=== PATIENT | male | born 1945 | race Caucasian/White ===

== ENCOUNTER → 2017-08-28 09:01 | Outpatient (CLI) | payer MEDICARE, OTHER, SELFPAY ==
[2017-08-29 09:20] LABS: Microalbumin:Creatinine Ratio 328.7 mg/g CRE (<30 mg/g CRE)
[2017-08-29 09:21] LABS: ALB/GLOB Ratio 0.9 RATIO (0.9-2.4); AST(SGOT) 28 U/L (15-37); Alanine Aminotransfer ALT/SGPT 25 U/L (16-61); Albumin, Serum 3.6 g/dL (3.2-5.0); Alkaline Phosphatase 68 U/L (45-117); Anion Gap 7 (5-15); BUN 51 mg/dL (7-18); Calcium,Total 10.2 mg/dL (8.5-10.1); Chloride 105 mmol/L (98-107); Creatinine, Serum 2.43 mg/dL (0.70-1.30); EST Glomerular Filtration Rate 28 mL/min (>60); Est Glom Filt Rate - Afr Amer 34 mL/min (>60); Globulin 3.9 g/dL (2.2-4.2); Glucose 114 mg/dL (74-106); Protein, Total 7.5 g/dL (6.4-8.2); Sodium Level 138 mmol/L (136-145); Thyroid Stim Hormone (TSH) 0.98 uIU/mL (0.358-3.74)
[2017-08-29 09:39] LABS: Hemoglobin A1c 4.8 % (4.2-6.3)
[2017-08-29 09:49] LABS: Vitamin B12 281 pg/mL (211-911); Vitamin D,25 Hydroxy 36.9 ng/mL (29.95-100.01)
== END ==
PROVIDERS: Family Provider Family Medicine; PCP Family Medicine; Visit Provider Family Medicine
DX: E11.22 Type 2 diabetes mellitus with diabetic chronic kidney disease (principal); N18.9 Chronic kidney disease, unspecified; E11.40 Type 2 diabetes mellitus with diabetic neuropathy, unspecified
CPT/HCPCS: 36415; 80053; 82043; 82306; 82570; 82607; 82746; 83036; 84443

== ENCOUNTER 2017-10-01 13:05 | Outpatient (RCR) | payer MEDICARE, OTHER, SELFPAY ==
[2017-10-01 14:45] LABS: International Normalized Ratio 2.1; Prothrombin Time (Protime)PT. 23.7 SECONDS (11.7-14.9)
== END 2017-10-01 14:00 | disposition home or self-care (01) ==
LOC: LAB 13:05
PROVIDERS: Family Provider Family Medicine; PCP Family Medicine; Visit Provider Internal Medicine Cardiovascular Disease
DX: I21.3 ST elevation (STEMI) myocardial infarction of unspecified site (principal); I48.1 Persistent atrial fibrillation; Z79.01 Long term (current) use of anticoagulants
CPT/HCPCS: 36415; 85610

== ENCOUNTER → 2017-10-23 09:27 | Outpatient (CLI) | payer MEDICARE, OTHER, SELFPAY ==
[2017-10-23 12:04] LABS: International Normalized Ratio 2.1; Prothrombin Time (Protime)PT. 23.2 SECONDS (11.7-14.9)
== END ==
PROVIDERS: Family Provider Family Medicine; PCP Family Medicine; Visit Provider Internal Medicine Cardiovascular Disease
DX: I48.1 Persistent atrial fibrillation (principal); Z79.01 Long term (current) use of anticoagulants
CPT/HCPCS: 36415; 85610

== ENCOUNTER → 2017-10-29 11:14 | Outpatient (CLI) | payer MEDICARE, OTHER, SELFPAY ==
--- NOTE | 2017-10-29 11:21 | NM_ITS ---
CLINICAL: 72-year-old diabetic male with history of apparent hiatal hernia. SEMI-SOLID PHASE 99m Tc SULFUR COLLOID GASTRIC EMPTYING STUDY COMPARISON: None available FINDINGS: The patient was administered 1.1 mCi of 99m Tc sulfur colloid mixed with oatmeal and consumed per os. Image acquisitions in the anterior-posterior projections for a total of 60 minutes. There is prompt visualization of the stomach. There is no gastroesophageal reflux identified. The T1/2 linear fit was calculated to be 24.04 minutes, (Normal: 12-56 minutes). NM/Gastric Emptying Study IMPRESSION: 1. NORMAL 99m Tc sulfur colloid semi-solid phase (oatmeal) gastric emptying imaging examination. A. There is normal and preserved semi-solid phase gastric emptying compared to normal controls with maintained zero order kinetics throughout all components of the examination. (Kelley et al, J Nucl Med Tech 38: 186, 2010). Electronically Signed: Aly Trinidad DO at 23:15 EDT Tel , Service support ,
== END ==
PROVIDERS: Family Provider Family Medicine; PCP Family Medicine; Visit Provider Family Medicine
DX: R68.81 Early satiety (principal)
CPT/HCPCS: 78264; A9541

== ENCOUNTER → 2017-11-13 09:59 | Outpatient (CLI) | payer MEDICARE, OTHER, SELFPAY ==
[2017-11-13 12:24] LABS: Anion Gap 8 (5-15); BUN 18 mg/dL (7-18); BUN/Creat Ratio 12.3 RATIO (10-20); Calcium,Total 10.3 mg/dL (8.5-10.1); Chloride 95 mmol/L (98-107); Creatinine, Serum 1.46 mg/dL (0.70-1.30); EST Glomerular Filtration Rate 50 mL/min (>60); Est Glom Filt Rate - Afr Amer 61 mL/min (>60); Glucose 152 mg/dL (74-106); Potassium 4.4 mmol/L (3.5-5.1); Sodium Level 133 mmol/L (136-145)
== END ==
PROVIDERS: Family Provider Family Medicine; PCP Family Medicine; Visit Provider Family Medicine
DX: I10 Essential (primary) hypertension (principal)
CPT/HCPCS: 36415; 80048

== ENCOUNTER → 2017-11-14 11:39 | Outpatient (CLI) | payer MEDICARE, OTHER, SELFPAY ==
[2017-11-14 14:29] LABS: Absolute Lymphocyte Count 0.95 X10^3/ul (0.83-4.51); Absolute Neutrophil Count 8.6 X10^3/uL (2.0-7.7); Basophil# 0.11 X10^3/uL; Basophil% 0.9 % (0-1); Eosinophil# 1.38 X10^3/uL; Eosinophils% 11.6 % (0-5); Hematocrit 31.5 % (40-54); Hemoglobin 10.2 g/dl (13.0-16.5); Lymphocyte # 0.95 X10^3/ul (4.0); Mean Corp Hgb Conc 32.4 g/gl (32-36); Mean Corpuscular Volume 86.5 fL (80-94); Mean Platelet Vol. 10.1 fl (6.2-12.0); Monocyte# 0.82 X10^3/uL; Monocyte% 6.9 % (0-10); Neutrophil # 8.58 X10^3/uL (2.7-7.7); Neutrophil % 72.4 % (47-70); Platelet Count 392 K/mm3 (150-450); RBC Distribution Width CV 12.9 % (11.6-14.6); RBC Distribution Width SD 39.6 fl (35.1-43.9); Red Blood Count 3.64 M/mm3 (4.6-6.2); White Blood Count 11.9 K/mm3 (4.4-11.0)
[2017-11-14 14:30] LABS: POSITIVE COUNT NO; POSITIVE DIFFERENTIAL NO; POSITIVE MORPHOLOGY NO
[2017-11-14 14:33] LABS: Vitamin D,25 Hydroxy 38.9 ng/mL (29.95-100.01)
[2017-11-14 14:36] LABS: ALB/GLOB Ratio 0.8 RATIO (0.9-2.4); AST(SGOT) 26 U/L (15-37); Alanine Aminotransfer ALT/SGPT 27 U/L (16-61); Albumin, Serum 3.5 g/dL (3.2-5.0); Alkaline Phosphatase 141 U/L (45-117); Anion Gap 9 (5-15); BUN 24 mg/dL (7-18); BUN/Creat Ratio 14.5 RATIO (10-20); Calcium,Total 10.5 mg/dL (8.5-10.1); Chloride 91 mmol/L (98-107); Creatinine, Serum 1.65 mg/dL (0.70-1.30); EST Glomerular Filtration Rate 44 mL/min (>60); Est Glom Filt Rate - Afr Amer 53 mL/min (>60); Globulin 4.3 g/dL (2.2-4.2); Glucose 157 mg/dL (74-106); Lipase 131 U/L (73-393); Potassium 4.5 mmol/L (3.5-5.1); Protein, Total 7.8 g/dL (6.4-8.2); Sodium Level 130 mmol/L (136-145); Thyroid Stim Hormone (TSH) 0.93 uIU/mL (0.358-3.74)
[2017-11-14 14:53] LABS: PTHIN 94.7 pg/mL (18.4-80.1)
== END ==
PROVIDERS: Family Provider Family Medicine; PCP Family Medicine; Visit Provider Family Medicine
DX: E83.52 Hypercalcemia (principal); R10.84 Generalized abdominal pain
CPT/HCPCS: 36415; 80053; 82306; 83690; 83970; 84443; 85025; 86140

== ENCOUNTER → 2017-11-16 09:22 | Outpatient (CLI) | payer MEDICARE, OTHER, SELFPAY ==
--- NOTE | 2017-11-16 09:26 | US_ITS ---
STUDY: ABDOMINAL ULTRASOUND REASON FOR EXAM: Male, 72 years old. Postprandial abdominal pain TECHNIQUE: Transabdominal ultrasound was performed with real-time and static tovar scale imaging. TECHNICAL QUALITY: Adequate. COMPARISON: None. FINDINGS: Liver: The liver measures 15.7 cm. There are at least 5 hypoechoic hepatic nodules measuring up to 2.0 x 2.9 x 1.7 cm. The bile ducts are within normal limits. There is hepatic color flow. The direction of portal flow is hepatopetal. Gallbladder: The patient is status post cholecystectomy. Common Bile Duct (C.B.D.): The common bile duct measures 6 mm. Pancreas: The pancreatic body and head appear normal. The tail was obscured by bowel gas. Spleen: The spleen measures 12.6 x 5.7 x 6.1 cm. cm. Right Kidney: The right kidney is lobular in contour. The right kidney measures 12.6 x 5.7 x 6.1 cm. Normal renal cortex. The right cortex measures 1.4 cm. There is no demonstrated renal mass or cyst. There is no right hydronephrosis. Left Kidney: The left kidney is also lobular in contour. The left kidney measures 12.9 x 4.9 x 6.2 cm. Normal renal cortex. The left cortex measures 1.3 cm. There is no demonstrated renal mass or cyst. There is no left hydronephrosis. Aorta: The proximal abdominal aorta measures 2.9 x 2.0 cm. The midabdominal aorta measures 2.4 x 1.8 cm. The distal abdominal aorta measures 1.9 x 1.5 cm. The right common iliac artery measures 1.2 x 0.9 cm. The left common iliac artery measures 1.3 x 0.9 cm. I.V.C.: The IVC is patent. There is no ascites. US/Abdomen Complete IMPRESSION: There are multiple hypoechoic hepatic lesions measuring up to 2.0 x 2.9 x 1.7 cm. The possibility of metastatic disease should be considered. CT of the abdomen and pelvis with and without contrast is recommended for further evaluation. Status post cholecystectomy. The pancreatic tail was obscured by bowel gas. Electronically Signed: Minh Gonzalez MD at 17:03 EDT , Service support ,
== END ==
PROVIDERS: Family Provider Family Medicine; PCP Family Medicine; Visit Provider Family Medicine
DX: R10.84 Generalized abdominal pain (principal)
CPT/HCPCS: 76700

== ENCOUNTER → 2017-11-19 11:03 | Outpatient (CLI) | payer MEDICARE, OTHER, SELFPAY ==
[2017-11-19 12:31] LABS: ALB/GLOB Ratio 0.7 RATIO (0.9-2.4); AST(SGOT) 20 U/L (15-37); Alanine Aminotransfer ALT/SGPT 20 U/L (16-61); Albumin, Serum 3.1 g/dL (3.2-5.0); Alkaline Phosphatase 135 U/L (45-117); Anion Gap 7 (5-15); BUN 20 mg/dL (7-18); BUN/Creat Ratio 12.6 RATIO (10-20); Calcium,Total 10.2 mg/dL (8.5-10.1); Chloride 95 mmol/L (98-107); Creatinine, Serum 1.59 mg/dL (0.70-1.30); EST Glomerular Filtration Rate 46 mL/min (>60); Est Glom Filt Rate - Afr Amer 55 mL/min (>60); Globulin 4.4 g/dL (2.2-4.2); Glucose 146 mg/dL (74-106); PSA,Total- Diagnostic 0.42 ng/mL (0.0-4.0); Potassium 4.1 mmol/L (3.5-5.1); Protein, Total 7.5 g/dL (6.4-8.2); Sodium Level 131 mmol/L (136-145)
[2017-11-20 15:10] LABS: AFP, Tumor Marker 0.9 ng/mL (0.0-8.3); Carcinoembryonic Antigen 1.3 ng/mL (0.0-4.7)
[2017-11-20 15:14] LABS: HCG BETA-SUBUNIT QUANT. 7 mIU/mL (0-3)
== END ==
PROVIDERS: Family Provider Family Medicine; PCP Family Medicine; Visit Provider Family Medicine
DX: R93.5 Abnormal findings on diagnostic imaging of other abdominal regions, including retroperitoneum (principal)
CPT/HCPCS: 36415; 80053; 82105; 82378; 84153; 84702

== ENCOUNTER 2017-11-27 11:27 | Inpatient (IN) | payer MEDICARE, OTHER, SELFPAY ==
[2017-11-27] VITALS (24 sets, daily range): BP systolic 112–171; BP diastolic 53–83; PULSE 57–77; RESP 14–18; TEMP 36.4–37.2; O2SAT 97–100; BMI 27.8; BMI 28.4
[2017-11-27 11:46] LABS: Bedside Glucose 162 mg/dL (70-110)
[2017-11-27 12:28] LABS: Absolute Lymphocyte Count 0.75 X10^3/ul (0.83-4.51); Absolute Neutrophil Count 9.8 X10^3/uL (2.0-7.7); Basophil# 0.04 X10^3/uL; Basophil% 0.3 % (0-1); Eosinophil# 0.52 X10^3/uL; Eosinophils% 4.3 % (0-5); Hematocrit 22.7 % (40-54); Hemoglobin 7.1 g/dl (13.0-16.5); Lymphocyte # 0.75 X10^3/ul (4.0); Lymphocyte % 6.3 % (19-41); Mean Corp Hgb Conc 31.3 g/gl (32-36); Mean Corpuscular Hgb 27.1 pg (27.0-32.0); Mean Corpuscular Volume 86.6 fL (80-94); Mean Platelet Vol. 9.9 fl (6.2-12.0); Monocyte# 0.89 X10^3/uL; Monocyte% 7.4 % (0-10); Neutrophil # 9.78 X10^3/uL (2.7-7.7); Neutrophil % 81.5 % (47-70); Platelet Count 322 K/mm3 (150-450); RBC Distribution Width CV 12.9 % (11.6-14.6); RBC Distribution Width SD 39.1 fl (35.1-43.9); Red Blood Count 2.62 M/mm3 (4.6-6.2)
[2017-11-27 12:30] LABS: POSITIVE COUNT NO; POSITIVE DIFFERENTIAL NO; POSITIVE MORPHOLOGY NO
[2017-11-27 12:33] LABS: International Normalized Ratio 3.1; Prothrombin Time (Protime)PT. 31.9 SECONDS (11.7-14.9)
[2017-11-27 12:44] LABS: ALB/GLOB Ratio 0.7 RATIO (0.9-2.4); AST(SGOT) 22 U/L (15-37); Alanine Aminotransfer ALT/SGPT 24 U/L (16-61); Albumin, Serum 3.1 g/dL (3.2-5.0); Alkaline Phosphatase 108 U/L (45-117); Anion Gap 4 (5-15); BUN 32 mg/dL (7-18); BUN/Creat Ratio 20.9 RATIO (10-20); Calcium,Total 10.5 mg/dL (8.5-10.1); Chloride 98 mmol/L (98-107); Creatinine, Serum 1.53 mg/dL (0.70-1.30); EST Glomerular Filtration Rate 48 mL/min (>60); Est Glom Filt Rate - Afr Amer 58 mL/min (>60); Globulin 4.2 g/dL (2.2-4.2); Glucose 175 mg/dL (74-106); Lipase 326 U/L (73-393); Potassium 4.2 mmol/L (3.5-5.1); Protein, Total 7.3 g/dL (6.4-8.2); Sodium Level 135 mmol/L (136-145)
[2017-11-27] MEDS: 0.9% Normal Saline 1,000 ML 150 ML IV (12:48)
[2017-11-27 13:08] LABS: Bacteria 0 SEEN /hpf (None Seen); Mucous, Urine 0 SEEN /hpf (<or=2+); Red Blood Cells-Urine 0 SEEN /hpf (0-5); Squamous Epithelial Cells - UA 0 SEEN /hpf (0-5); White Blood Cells 0 SEEN /hpf (0-5)
[2017-11-27 13:16] LABS: Color, Urine Yellow (Yellow); Glucose, Dipstick Normal (Normal); Ketone-Dipstick Negative (Negative); Leukocyte Esterase-Dipstick Negative /ul (Negative); Nitrite-Dipstick Negative (Negative); Occult Blood-Urine Negative /ul (Negative); Protein-Dipstick 100 mg/dl (Negative); Urine Bilirubin Dipstick Negative (Negative); Urine Clarity Clear (Clear); Urine Urobilinogen Normal (Normal)
--- NOTE | 2017-11-27 13:33 | ED.VISSUMM ---
- ER Visit Summary Date of Service: 11/27/17 Chief Complaint: [Weakness] History of Present Illness: The patient is a 72 M [presents the emergency department complaint of generalized weakness and elevated blood sugars yesterday. Patient states that he feels somewhat lightheaded today. Patient states his blood sugars were over 500 yesterday but this morning more in the mid 100 range. Patient denies recent illness. Patient denies any blood in his stool although states his stools have been darker lately but he attributed that the eating blueberries. Patient is on Coumadin for history of atrial fibrillation and history of pacemaker. Patient is a diabetic and has history of hypertension and coronary artery disease. He denies any chest pain or shortness of breath with activity.] Physical Examination: [HEENT-PERRLA, EOMI. Cranial nerves II through XII grossly intact. TMs clear. Mucous membranes moist. No adenopathy. Cardiovascular-regular rate and rhythm without murmur or ectopy Lungs-clear to auscultation, chest wall stable without crepitus or subcu emphysema Abdomen-normoactive bowel sounds, soft, nontender, no rebound or rigidity, no peritoneal signs. Rectal exam-no masses palpated, no stool in the rectal vault, Hemoccult pending. Extremities-intact ?4, normal range of motion, normal pulses, atraumatic] Test Results: [EKG obtained on arrival showed a atrially paced rhythm with a ventricular rate of 70 bpm with occasional PVCs noted. CBC with differential and white count of 12,000, heme globin 7.1, hematocrit 23, platelets 322. Chemistries unremarkable. BUN was 32 and creatinine 1.53. LFTs unremarkable lipase was 326. INR was 3.1. Troponin was less than 0.015.] Emergency Department Course and Treatment: [Patient had orthostatic vital signs that noted drop of 20 points systolic from lying to standing however heart rate did not change. Patient was given normal saline fluids here and type and screen was ordered. CT scan of the abdomen with IV contrast was ordered as patient's been having pain underneath the right ribs for several months and recently had ultrasound that showed hypoechoic lesions in the liver with concern for possible metastasis in his primary care physician had ordered a CT scan of the abdomen pelvis to be done in 2 days however I was worried given the fact the patient is on Coumadin and is now anemic possibility of retroperitoneal hematoma.] Treatment Plan: [Admit] Disposition: [Admit] Impression: [Anemia Generalized weakness Coumadin coagulopathy Abdominal pain] This note was generated with [employer] dictation software. It may contain incorrect words, spelling, and punctuation that were not noted in review of the chart prior to signing ED Disposition - Plan for ED Patient: Chief Complaint: Weakness Referrals: Scotty Nicolas MD [Primary Care Provider] -
--- NOTE | 2017-11-27 13:41 | CM.ED ---
Social Work Note Attempted to see, but pt was presently with pharmacist. Will reattempt to see as time allows. Keshia Lopes, DELIVERY COORDINATOR, [employer]
--- NOTE | 2017-11-27 13:42 | NURSING ---
[facility]pper notified patient may transfer to PCU.
--- NOTE | 2017-11-27 14:04 | PCM.HP.STD ---
Problem List (1) Near syncope Status: Acute (2) Acute symptomatic anemia Status: Acute (3) Abdominal pain, chronic, right upper quadrant Status: Acute (4) Multiple hypoechoic hepatic lesions Status: Acute (5) Paroxysmal atrial flutter Status: Chronic (6) Paroxysmal atrial fibrillation Status: Chronic (7) Type 2 diabetes mellitus Status: Chronic (8) Hypertension Status: Chronic Qualifiers: Hypertension type: essential hypertension Qualified Code(s): I10 - Essential (primary) hypertension (9) Hyperlipidemia Status: Chronic Qualifiers: Hyperlipidemia type: unspecified Qualified Code(s): E78.5 - Hyperlipidemia, unspecified (10) Left atrial enlargement Status: Chronic (11) Left ventricular hypertrophy Status: Chronic (12) Atherosclerotic heart disease of nome coronary artery without angina pectoris Status: Chronic Qualifiers: [place] vs. transplanted heart: nome heart Qualified Code(s): I25.10 - Atherosclerotic heart disease of nome coronary artery without angina pectoris Comment: CABG x3- WARREN to LAD, SVG to diag branch of the LAD, and SVG to the 2nd lateral CX, intraoperative echo with maze procedure with Rt/Lt atrial and pulmonary vein isolatiion with Lt atrial appendage burn isolation with placement of Atri-Cure clip 10/09/13 (13) Aortocoronary bypass status Status: Chronic Comment: CABG x3- WARREN to LAD, SVG to diag branch of the LAD, and SVG to the 2nd lateral CX, intraoperative echo with maze procedure with Rt/Lt atrial and pulmonary vein isolatiion with Lt atrial appendage burn isolation with placement of Atri-Cure clip 10/09/13 (14) Long-term use of high-risk medication Status: Chronic (15) Persistent atrial fibrillation Status: Chronic (16) Left atrial thrombus Status: Chronic (17) History of complete heart block Status: Chronic (18) Presence of permanent cardiac pacemaker Status: Chronic Comment: Implant 07/30/15 (19) Bilateral carotid bruits Status: Chronic (20) snf (current) use of anticoagulants Status: Chronic History of Present Illness Date of Admission: 11/27/17 Chief Complaint: Feeling dizzy lightheaded, generalized weakness with elevated blood sugar. The patient is a 72 year old M with history of multiple comorbidities including coronary artery disease status post three-vessel CABG 2011, chronic A. fib/atrial flutter on Coumadin status post pacemaker came to ER with symptoms of near syncope including dizziness, lightheadedness on walking and generalized weakness. Patient also had high blood sugar yesterday in the range of 500 but today was found in 100s and 175 in BMP. Patient also complaining of a right upper quadrant abdominal pain for about 2 months which is dull and achy about 4-5/10 intensity steady, more noticeable in evening/night. Patient had ultrasound done by PCP on 11/16/2017 and reported as multiple hypoechoic lesions, at least 5 in number, 2.06 x 2.9 x 1.7 cm suspicious of metastatic disease. Patient is status post cholecystectomy in 1980. CBD 6 mm. Normal pancreatic head and body. No ascites. In ED, his vital signs are stable. Initial blood work shows severe anemia, hemoglobin 7.1/22.7, platelet count 322, INR 3.1. BUN/creatinine 32/153. LFT within normal limit except albumin 3.1. UA negative. [] Past Medical History Past Medical History (Chronic Problems): Chronic Problems (Last Reviewed 10/01/17 @ 14:10 by Lily Fay) Paroxysmal atrial flutter (Chronic) Paroxysmal atrial fibrillation (Chronic) Type 2 diabetes mellitus (Chronic) Hypertension (Chronic) Hyperlipidemia (Chronic) Left atrial enlargement (Chronic) Left ventricular hypertrophy (Chronic) Atherosclerotic heart disease of nome coronary artery without angina pectoris (Chronic) CABG x3- WARREN to LAD, SVG to diag branch of the LAD, and SVG to the 2nd lateral CX, intraoperative echo with maze procedure with Rt/Lt atrial and pulmonary vein isolatiion with Lt atrial appendage burn isolation with placement of Atri-Cure clip 10/09/13 Aortocoronary bypass status (Chronic ~10/09/13) CABG x3- WARREN to LAD, SVG to diag branch of the LAD, and SVG to the 2nd lateral CX, intraoperative echo with maze procedure with Rt/Lt atrial and pulmonary vein isolatiion with Lt atrial appendage burn isolation with placement of Atri-Cure clip 10/09/13 Long-term use of high-risk medication (Chronic) Persistent atrial fibrillation (Chronic) Left atrial thrombus (Chronic) History of complete heart block (Chronic) Presence of permanent cardiac pacemaker (Chronic ~07/30/15) Implant 07/30/15 Bilateral carotid bruits (Chronic) 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) Medical History: Medical History (Last Reviewed 10/01/17 @ 14:10 by Lily Fay) Paroxysmal atrial flutter (Acute) I48.92 Paroxysmal atrial fibrillation (Acute) I48.0 Type 2 diabetes mellitus (Chronic) E11.9 Hypertension (Chronic) I10 Hyperlipidemia (Chronic) E78.5 Left atrial enlargement (Chronic) I51.7 Left ventricular hypertrophy (Chronic) I51.7 Atherosclerotic heart disease of nome coronary artery without angina pectoris (Chronic) I25.10 CABG x3- WARREN to LAD, SVG to diag branch of the LAD, and SVG to the 2nd lateral CX, intraoperative echo with maze procedure with Rt/Lt atrial and pulmonary vein isolatiion with Lt atrial appendage burn isolation with placement of Atri-Cure clip 10/09/13 Long-term use of high-risk medication (Chronic) Z79.899 Persistent atrial fibrillation (Chronic) I48.1 Left atrial thrombus (Chronic) History of complete heart block (Chronic) Z86.79 Presence of permanent cardiac pacemaker (Chronic) Onset Date: ~07/30/15 Z95.0 Implant 16 Bilateral carotid bruits (Chronic) R09.89 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) Z79.01 Asthma J45.909 CKD (chronic kidney disease) N18.9 Sleep apnea G47.30 Allergies atorvastatin calcium [From Lipitor] Allergy (Verified 11/27/17 11:30) Pain in joints Home Medications: Ambulatory Orders Medication Instructions Recorded Hydrocodone/Acetaminophen [Vicodin 1 tab PO Q4H PRN PRN 09/22/13 5-300 mg Tablet] Insulin Detemir [Levemir FlexPen] 7 - 10 units SC DAILY 09/22/13 Ipratropium/Albuterol Respimat 1 puff INHALATION DAILY PRN PRN 09/22/13 [Combivent Respimat Inhal [place]] Lisinopril [Zestril] 20 mg PO BID 09/22/13 Nitroglycerin [Nitrostat] 0.4 mg SUBLINGUAL Q5M PRN 09/22/13 traMADol [Ultram (G)] 50 mg PO Q8H PRN PRN 09/22/13 warfarin 2 mg tablet 2 mg PO QDAY 05/02/17 warfarin 5 mg tablet 5 mg PO QDAY 05/02/17 cetirizine 10 mg tablet 10 mg PO DAILY PRN PRN 09/30/17 glucosamine sulfate 500 mg tablet 1,000 mg PO BID tab 09/30/17 magnesium oxide 400 mg tablet 400 mg PO DAILY tab 09/30/17 metoprolol tartrate 50 mg tablet 50 mg PO BID 09/30/17 multivitamin tablet 1 tab PO QDAY 09/30/17 Baclofen [Baclofen] 11/27/17 Gabapentin [Neurontin] 300 mg PO QHS PRN 11/27/17 Metformin HCl [Glucophage] 1,000 mg PO BID 11/27/17 Omeprazole [Omeprazole] 11/27/17 Spironolact/Hydrochlorothiazid 1 tab PO DAILY 11/27/17 [Aldactazide 25-25 Tablet] Ubidecarenone [Coenzyme Q-10] 200 mg PO DAILY 11/27/17 lipase/protease/amylase [Creon DR 1 capsule PO TID 11/27/17 6,000 Unit Capsule] Surgical History: Surgical History (Last Reviewed 10/01/17 @ 14:10 by Lily Fay) Aortocoronary bypass status (Chronic) Onset Date: ~10/09/13 Z95.1 CABG x3- WARREN to LAD, SVG to diag branch of the LAD, and SVG to the 2nd lateral CX, intraoperative echo with maze procedure with Rt/Lt atrial and pulmonary vein isolatiion with Lt atrial appendage burn isolation with placement of Atri-Cure clip 10/09/13 History of cardiac radiofrequency ablation Onset Date: ~03/2014 Z98.890 History of cholecystectomy Z90.49 History of right hip replacement Z96.641 History of tonsillectomy Z90.89 Smoking Status: Former smoker - Quit smoking in 1988. About 20-25 pack years of smoking - *Family History Paternal Family History: Family History (Last Reviewed 10/01/17 @ 14:10 by Lily Fay) Father CAD (coronary artery disease) Myocardial infarction, Onset Age: 60 History Items: No pertinent history Review of Systems Constitutional: Reports: Weakness. Denies: Chills, Fever, Weight Change HEENT: Denies: Head Aches, Sinus Congestion, Sinus Drainage Cardiovascular: Denies: Chest Pain, Palpitations Respiratory: Reports: Cough - Chronic cough, worse for 2 months with a lot of phlegm in the morning. Denies: Shortness of breath at rest, Sputum production Gastrointestinal: Reports: Abdominal Pain, Nausea. Denies: Vomiting Genitourinary: Denies: Dysuria Musculoskeletal: Denies: Joint Pain, Joint Tenderness Skin: Denies: Rash, Wounds Neurological: Denies: Numbness, Tingling, Focal weakness Psychiatric: Denies: Anxiety, Depression, Homicidal Ideations, Suicidal Ideations Hematologic/ Lymphatic: Denies: Easy Bruising, Easy Bleeding VTE Information - Inpt Only VTE Present on Admission: No VTE Mechan Device Prophylaxis: SCD's VTE Pharm Prophylaxis ordered?: No Reason prophylaxis not ordered:: Medical Contraindication - Severe anemia Patient Problems: Active and Suspected Problems (Last Reviewed 10/01/17 @ 14:10 by Lily Fay) Near syncope (Acute) Acute symptomatic anemia (Acute) Abdominal pain, chronic, right upper quadrant (Acute) Multiple hypoechoic hepatic lesions (Acute) - Physical Exam General: Alert, Oriented x3, Cooperative HEENT: Atraumatic, PERRLA, EOMI, Normocephalic Neck: Supple, No JVD, Negative Carotid Bruits Lungs: Clear to auscultation, Normal air movement, No rhonchi, Diminished - In bilateral lung bases mainly in the right lung base Cardiovascular: Regular rate, Normal S1, Normal S2, No murmurs, Irregular Rate, - - CABG and pacemaker Abdomen: Bowel Sounds Present, Soft, Non-Distended, Tender - Deep tenderness present over right costal margin. Liver not enlarged. Nondistended. No palpable mass Extremities: No edema, Capillary Refill Less than 3 Seconds Skin: No rashes, No breakdown Musculoskeletal: No Tenderness to Palpation of Joints or Extremities Neurological: Cranial nerves II-XII grossly intact Psych/Mental Status: Normal Affect, Appropriate Vital Signs Temp Pulse Resp BP Pulse Ox 97.6 F L 70 18 154/71 H 99 11/27/17 11:27 11/27/17 13:39 11/27/17 13:39 11/27/17 13:39 11/27/17 11:27 Assessment/Plan All Active Problems (Last Reviewed 10/01/17 @ 14:10 by Lily Fay) Near syncope (Acute) Acute symptomatic anemia (Acute) Abdominal pain, chronic, right upper quadrant (Acute) Multiple hypoechoic hepatic lesions (Acute) The patient is a 72 year old M with history of multiple comorbidities including coronary artery disease status post three-vessel CABG 2011, chronic A. fib/atrial flutter on Coumadin status post pacemaker came to ER with symptoms of near syncope including dizziness, lightheadedness on walking and generalized weakness. Patient also had high blood sugar yesterday in the range of 500 but today was found in 100s and 175 in BMP. Patient also complaining of a right upper quadrant abdominal pain for about 2 months which is dull and achy about 4-5/10 intensity steady, more noticeable in evening/night. Patient had ultrasound done by PCP on 11/16/2017 and reported as multiple hypoechoic lesions, at least 5 in number, 2.06 x 2.9 x 1.7 cm suspicious of metastatic disease. Patient is status post cholecystectomy in 1980. CBD 6 mm. Normal pancreatic head and body. No ascites. In ED, his vital signs are stable. Initial blood work shows severe anemia, hemoglobin 7.1/22.7, platelet count 322, INR 3.1. BUN/creatinine 32/153. LFT within normal limit except albumin 3.1. UA negative. 1. Acute symptomatic anemia, most probably from coagulopathy/possible occult GI blood loss: Patient is being admitted in PCU. His previous hemoglobin was 10.2 g percent on 14 November 2017, and 12.2 in December 2016. 2 units of PRBC ordered after group type and crossmatch. IV fluid normal saline. Monitor intake and output. Adjust IV fluids depending upon urine output and intravascular fluid status. Surgeon Dr. Baca is being consulted to evaluate further for possible GI bleed. Patient had colonoscopy in March 2017 and one polyp was removed in [place]. 2. Chronic right upper quadrant abdominal pain status post cholecystectomy. CT abdomen with oral and IV contrast ordered. Rest as mentioned above. 3. Multiple hepatic nodules with concern of possible metastatic disease: CT abdomen with oral and IV contrast ordered. Rest as mentioned above. 4. Cardiac conditions: Coronary artery disease status post three-vessel CABG, chronic A. fib/flutter on Coumadin, history of complete heart block status post permanent cardiac pacemaker and cardioversion. : Patient follows Dr. Flores. Cardiac enzymes ordered. Patient had AIDE in June 2015 which reported as mild right atrial enlargement, left atrium mildly enlarged with evidence of left atrial appendage exclusion from prior history of AtriClip. Possibility of left atrial appendage mobile echodensity suspicious for thrombus. LVEF 50-55%. Coumadin is on hold. 2 units of FFP ordered as per suggestion of surgeon for EGD and for possible intervention if bleeding found. No vitamin K. 5. COPD: Chest x-ray is negative for acute condition. Continue Combivent as needed and Advair. 6. Uncontrolled diabetes mellitus type 2: A1c tomorrow a.m. Accu-Chek before meals and at bedtime cover with NovoLog sliding scale. Metformin 700 respiratory is getting IV contrast. 7. CKD stage III: Patient creatinine fluctuates between 1.5-2.0 in last 1 year. Currently 1.53. Continue IV fluid normal saline to avoid contrast-induced nephropathy. Hold metformin and diuretics. Lisinopril dose decreased. 8. Other chronic comorbidities include hypertension, dyslipidemia: Home medication reconciliation done. Total time spent in history and physical, review of labs, imaging test and discussion with the ER physician, surgeon and discussion of management with the patient: 55 minutes This note was generated with [employer] dictation software. Every effort was made to ensure accuracy, however computerized medical transcription mistakes may persist. Code Visit Inpatient E&M: 92859 Init Hosp L3
--- NOTE | 2017-11-27 14:10 | HP.PCM_ITS ---
Problem List (1) Near syncope Status: Acute (2) Acute symptomatic anemia Status: Acute (3) Abdominal pain, chronic, right upper quadrant Status: Acute (4) Multiple hypoechoic hepatic lesions Status: Acute (5) Paroxysmal atrial flutter Status: Chronic (6) Paroxysmal atrial fibrillation Status: Chronic (7) Type 2 diabetes mellitus Status: Chronic (8) Hypertension Status: Chronic Qualifiers: Hypertension type: essential hypertension Qualified Code(s): I10 - Essential (primary) hypertension (9) Hyperlipidemia Status: Chronic Qualifiers: Hyperlipidemia type: unspecified Qualified Code(s): E78.5 - Hyperlipidemia , unspecified (10) Left atrial enlargement Status: Chronic (11) Left ventricular hypertrophy Status: Chronic (12) Atherosclerotic heart disease of [place] coronary artery without angina pectoris Status: Chronic Qualifiers: [place] vs. transplanted heart: [place] heart Qualified Code(s): I25.10 - Atherosclerotic heart disease of [place] coronary artery without angina pectoris Comment: CABG x3- WARREN to LAD, SVG to diag branch of the LAD, and SVG to the 2nd lateral CX, intraoperative echo with maze procedure with Rt/Lt atrial and pulmonary vein isolatiion with Lt atrial appendage burn isolation with placement of Atri-Cure clip 10/09/13 (13) Aortocoronary bypass status Status: Chronic Comment: CABG x3- WARREN to LAD, SVG to diag branch of the LAD, and SVG to the 2nd lateral CX, intraoperative echo with maze procedure with Rt/ Lt atrial and pulmonary vein isolatiion with Lt atrial appendage burn isolation with placement of Atri-Cure clip 10/09/13 (14) Long-term use of high-risk medication Status: Chronic (15) Persistent atrial fibrillation Status: Chronic (16) Left atrial thrombus Status: Chronic (17) History of complete heart block Status: Chronic (18) Presence of permanent cardiac pacemaker Status: Chronic Comment: Implant 07/30/15 (19) Bilateral carotid bruits Status: Chronic (20) 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 The patient is a 72 year old M with history of multiple comorbidities including coronary artery disease status post three-vessel CABG 2011, chronic A. fib/ atrial flutter on Coumadin status post pacemaker came to ER with symptoms of near syncope including dizziness, lightheadedness on walking and generalized weakness. Patient also had high blood sugar yesterday in the range of 500 but today was found in 100s and 175 in BMP. Patient also complaining of a right upper quadrant abdominal pain for about 2 months which is dull and achy about 4-5/10 intensity steady, more noticeable in evening/night. Patient had ultrasound done by PCP on 11/16/2017 and reported as multiple hypoechoic lesions, at least 5 in number, 2.06 x 2.9 x 1.7 cm suspicious of metastatic disease. Patient is status post cholecystectomy in 1980. CBD 6 mm. Normal pancreatic head and body. No ascites. In ED, his vital signs are stable. Initial blood work shows severe anemia, hemoglobin 7.1/22.7, platelet count 322, INR 3.1. BUN/creatinine 32/153. LFT within normal limit except albumin 3.1. UA negative. [] Past Medical History Past Medical History (Chronic Problems): Chronic Problems (Last Reviewed 10/01/17 @ 14:10 by Lily Fay) Paroxysmal atrial flutter (Chronic) Paroxysmal atrial fibrillation (Chronic) Type 2 diabetes mellitus (Chronic) Hypertension (Chronic) Hyperlipidemia (Chronic) Left atrial enlargement (Chronic) Left ventricular hypertrophy (Chronic) Atherosclerotic heart disease of [place] coronary artery without angina pectoris (Chronic) CABG x3- WARREN to LAD, SVG to diag branch of the LAD, and SVG to the 2nd lateral CX, intraoperative echo with maze procedure with Rt/Lt atrial and pulmonary vein isolatiion with Lt atrial appendage burn isolation with placement of Atri-Cure clip 10/09/13 Aortocoronary bypass status (Chronic ~10/09/13) CABG x3- WARREN to LAD, SVG to diag branch of the LAD, and SVG to the 2nd lateral CX, intraoperative echo with maze procedure with Rt/Lt atrial and pulmonary vein isolatiion with Lt atrial appendage burn isolation with placement of Atri-Cure clip 10/09/13 Long-term use of high-risk medication (Chronic) Persistent atrial fibrillation (Chronic) Left atrial thrombus (Chronic) History of complete heart block (Chronic) Presence of permanent cardiac pacemaker (Chronic ~07/30/15) Implant 07/30/15 Bilateral carotid bruits (Chronic) senior care (current) use of anticoagulants (Chronic) Medical History: Medical History (Last Reviewed 10/01/17 @ 14:10 by Lily Fay) Paroxysmal atrial flutter (Acute) I48.92 Paroxysmal atrial fibrillation (Acute) I48.0 Type 2 diabetes mellitus (Chronic) E11.9 Hypertension (Chronic) I10 Hyperlipidemia (Chronic) E78.5 Left atrial enlargement (Chronic) I51.7 Left ventricular hypertrophy (Chronic) I51.7 Atherosclerotic heart disease of [place] coronary artery without angina pectoris (Chronic) I25.10 CABG x3- WARREN to LAD, SVG to diag branch of the LAD, and SVG to the 2nd lateral CX, intraoperative echo with maze procedure with Rt/Lt atrial and pulmonary vein isolatiion with Lt atrial appendage burn isolation with placement of Atri-Cure clip 10/09/13 Long-term use of high-risk medication (Chronic) Z79.899 Persistent atrial fibrillation (Chronic) I48.1 Left atrial thrombus (Chronic) History of complete heart block (Chronic) Z86.79 Presence of permanent cardiac pacemaker (Chronic) Onset Date: ~07/30/15 Z95.0 Implant 16 Bilateral carotid bruits (Chronic) R09.89 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) Z79.01 Asthma J45.909 CKD (chronic kidney disease) N18.9 Sleep apnea G47.30 Allergies atorvastatin calcium [From Lipitor] Allergy (Verified 11/27/17 11:30) Pain in joints Home Medications: Ambulatory Orders Medication Instructions Recorded Hydrocodone/Acetaminophen [Vicodin 1 tab PO Q4H PRN PRN 09/22/13 5-300 mg Tablet] Insulin Detemir [Levemir FlexPen] 7 - 10 units SC DAILY 09/22/13 Ipratropium/Albuterol Respimat 1 puff INHALATION DAILY PRN PRN 09/22/13 [Combivent Respimat Inhal [place]] Lisinopril [Zestril] 20 mg PO BID 09/22/13 Nitroglycerin [Nitrostat] 0.4 mg SUBLINGUAL Q5M PRN 09/22/13 traMADol [Ultram (G)] 50 mg PO Q8H PRN PRN 09/22/13 warfarin 2 mg tablet 2 mg PO QDAY 05/02/17 warfarin 5 mg tablet 5 mg PO QDAY 05/02/17 cetirizine 10 mg tablet 10 mg PO DAILY PRN PRN 09/30/17 glucosamine sulfate 500 mg tablet 1,000 mg PO BID tab 09/30/17 magnesium oxide 400 mg tablet 400 mg PO DAILY tab 09/30/17 metoprolol tartrate 50 mg tablet 50 mg PO BID 09/30/17 multivitamin tablet 1 tab PO QDAY 09/30/17 Baclofen [Baclofen] 11/27/17 Gabapentin [Neurontin] 300 mg PO QHS PRN 11/27/17 Metformin HCl [Glucophage] 1,000 mg PO BID 11/27/17 Omeprazole [Omeprazole] 11/27/17 Spironolact/Hydrochlorothiazid 1 tab PO DAILY 11/27/17 [Aldactazide 25-25 Tablet] Ubidecarenone [Coenzyme Q-10] 200 mg PO DAILY 11/27/17 lipase/protease/amylase [Creon DR 1 capsule PO TID 11/27/17 6,000 Unit Capsule] Surgical History: Surgical History (Last Reviewed 10/01/17 @ 14:10 by Lily Fay) Aortocoronary bypass status (Chronic) Onset Date: ~10/09/13 Z95.1 CABG x3- WARREN to LAD, SVG to diag branch of the LAD, and SVG to the 2nd lateral CX, intraoperative echo with maze procedure with Rt/Lt atrial and pulmonary vein isolatiion with Lt atrial appendage burn isolation with placement of Atri-Cure clip 10/09/13 History of cardiac radiofrequency ablation Onset Date: ~03/2014 Z98.890 History of cholecystectomy Z90.49 History of right hip replacement Z96.641 History of tonsillectomy Z90.89 Smoking Status: Former smoker - Quit smoking in 1988. About 20-25 pack years of smoking - *Family History Paternal Family History: Family History (Last Reviewed 10/01/17 @ 14:10 by Lily Fay) Father CAD (coronary artery disease) Myocardial infarction, Onset Age: 60 History Items: No pertinent history Review of Systems Constitutional: Reports: Weakness. Denies: Chills, Fever, Weight Change HEENT: Denies: Head Aches, Sinus Congestion, Sinus Drainage Cardiovascular: Denies: Chest Pain, Palpitations Respiratory: Reports: Cough - Chronic cough, worse for 2 months with a lot of phlegm in the morning. Denies: Shortness of breath at rest, Sputum production Gastrointestinal: Reports: Abdominal Pain, Nausea. Denies: Vomiting Genitourinary: Denies: Dysuria Musculoskeletal: Denies: Joint Pain, Joint Tenderness Skin: Denies: Rash, Wounds Neurological: Denies: Numbness, Tingling, Focal weakness Psychiatric: Denies: Anxiety, Depression, Homicidal Ideations, Suicidal Ideations Hematologic/ Lymphatic: Denies: Easy Bruising, Easy Bleeding VTE Information - Inpt Only VTE Present on Admission: No VTE Mechan Device Prophylaxis: SCD's VTE Pharm Prophylaxis ordered?: No Reason prophylaxis not ordered:: Medical Contraindication - Severe anemia Patient Problems: Active and Suspected Problems (Last Reviewed 10/01/17 @ 14:10 by Lily Fay) Near syncope (Acute) Acute symptomatic anemia (Acute) Abdominal pain, chronic, right upper quadrant (Acute) Multiple hypoechoic hepatic lesions (Acute) - Physical Exam General: Alert, Oriented x3, Cooperative HEENT: Atraumatic, PERRLA, EOMI, Normocephalic Neck: Supple, No JVD, Negative Carotid Bruits Lungs: Clear to auscultation, Normal air movement, No rhonchi, Diminished - In bilateral lung bases mainly in the right lung base Cardiovascular: Regular rate, Normal S1, Normal S2, No murmurs, Irregular Rate, - - CABG and pacemaker Abdomen: Bowel Sounds Present, Soft, Non-Distended, Tender - Deep tenderness present over right costal margin. Liver not enlarged. Nondistended. No palpable mass Extremities: No edema, Capillary Refill Less than 3 Seconds Skin: No rashes, No breakdown Musculoskeletal: No Tenderness to Palpation of Joints or Extremities Neurological: Cranial nerves II-XII grossly intact Psych/Mental Status: Normal Affect, Appropriate Vital Signs Temp Pulse Resp BP Pulse Ox 97.6 F L 70 18 154/71 H 99 11/27/17 11:27 11/27/17 13:39 11/27/17 13:39 11/27/17 13:39 11/27/17 11:27 Assessment/Plan All Active Problems (Last Reviewed 10/01/17 @ 14:10 by Lily Fay) Near syncope (Acute) Acute symptomatic anemia (Acute) Abdominal pain, chronic, right upper quadrant (Acute) Multiple hypoechoic hepatic lesions (Acute) The patient is a 72 year old M with history of multiple comorbidities including coronary artery disease status post three-vessel CABG 2011, chronic A. fib/ atrial flutter on Coumadin status post pacemaker came to ER with symptoms of near syncope including dizziness, lightheadedness on walking and generalized weakness. Patient also had high blood sugar yesterday in the range of 500 but today was found in 100s and 175 in BMP. Patient also complaining of a right upper quadrant abdominal pain for about 2 months which is dull and achy about 4-5/10 intensity steady, more noticeable in evening/night. Patient had ultrasound done by PCP on 11/16/2017 and reported as multiple hypoechoic lesions, at least 5 in number, 2.06 x 2.9 x 1.7 cm suspicious of metastatic disease. Patient is status post cholecystectomy in 1980. CBD 6 mm. Normal pancreatic head and body. No ascites. In ED, his vital signs are stable. Initial blood work shows severe anemia, hemoglobin 7.1/22.7, platelet count 322, INR 3.1. BUN/creatinine 32/153. LFT within normal limit except albumin 3.1. UA negative. 1. Acute symptomatic anemia, most probably from coagulopathy/possible occult GI blood loss: Patient is being admitted in PCU. His previous hemoglobin was 10.2 g percent on 14 November 2017, and 12.2 in December 2016. 2 units of PRBC ordered after group type and crossmatch. IV fluid normal saline. Monitor intake and output. Adjust IV fluids depending upon urine output and intravascular fluid status. Surgeon Dr. Baca is being consulted to evaluate further for possible GI bleed. Patient had colonoscopy in March 2017 and one polyp was removed in [place]. 2. Chronic right upper quadrant abdominal pain status post cholecystectomy. CT abdomen with oral and IV contrast ordered. Rest as mentioned above. 3. Multiple hepatic nodules with concern of possible metastatic disease: CT abdomen with oral and IV contrast ordered. Rest as mentioned above. 4. Cardiac conditions: Coronary artery disease status post three-vessel CABG, chronic A. fib/flutter on Coumadin, history of complete heart block status post permanent cardiac pacemaker and cardioversion. : Patient follows Dr. Flores. Cardiac enzymes ordered. Patient had AIDE in June 2015 which reported as mild right atrial enlargement, left atrium mildly enlarged with evidence of left atrial appendage exclusion from prior history of AtriClip. Possibility of left atrial appendage mobile echodensity suspicious for thrombus. LVEF 50-55%. Coumadin is on hold. 2 units of FFP ordered as per suggestion of surgeon for EGD and for possible intervention if bleeding found. No vitamin K. 5. COPD: Chest x-ray is negative for acute condition. Continue Combivent as needed and Advair. 6. Uncontrolled diabetes mellitus type 2: A1c tomorrow a.m. Accu-Chek before meals and at bedtime cover with NovoLog sliding scale. Metformin 700 respiratory is getting IV contrast. 7. CKD stage III: Patient creatinine fluctuates between 1.5-2.0 in last 1 year. Currently 1.53. Continue IV fluid normal saline to avoid contrast- induced nephropathy. Hold metformin and diuretics. Lisinopril dose decreased. 8. Other chronic comorbidities include hypertension, dyslipidemia: Home medication reconciliation done. Total time spent in history and physical, review of labs, imaging test and discussion with the ER physician, surgeon and discussion of management with the patient: 55 minutes This note was generated with [employer] dictation software. Every effort was made to ensure accuracy, however computerized charter coordinator mistakes may persist. Code Visit Inpatient E&M: 61009 Init Hosp L3
--- NOTE | 2017-11-27 14:48 | PCM.CONS.GEN ---
Reason for Consult Date of Consultation: 11/27/17 Reason for Consultation: Anemia History of Present Illness: The patient is a 72 year old M presented to the ER due to lightheadedness. Patient states that he initially thought his lightheadedness was due to his high blood sugar of greater than 500 as he is a diabetic however he did take a little more insulin last night and his blood sugar was improved to 175 fasting however he still felt lightheaded so he came to the ER. Patient also states he has been having digestive issues for about 2 months states that when he eats he gets some epigastric pain and he almost always also has a right mid back pain that he describes as an ache. Patient states he has intentionally lost about 55 pounds by decreasing the amount of food and trying to eat healthier since last fall. Patient was found to have a hemoglobin of 7.1 from 10.2 earlier this month he states he has been having dark stools but attributes that to eating blueberries patient describes his stools as dark brown denies any gross blood. He only has bowel movements about once every 2 days and does need some MiraLAX to have a bowel movement. Patient states he had his last colonoscopy in March 2017 in [place] where he wall and there is only one polyp. He denies ever having the EGD. Denies any nausea or vomiting. States his sister had cancer he is unsure what type he thought it may be in the digestive system. Patient's current INR is also 3.1 he is on Coumadin for A. fib. Patient also had an outpatient ultrasound which did show 5 hypoechoic lesions in the liver and a normal common bile duct at [address] for further evaluation. Past Medical History Past Medical History (Chronic Problems): Chronic Problems (Last Reviewed 10/01/17 @ 14:10 by Lily Fay) Paroxysmal atrial flutter (Chronic) Paroxysmal atrial fibrillation (Chronic) Type 2 diabetes mellitus (Chronic) Hypertension (Chronic) Hyperlipidemia (Chronic) Left atrial enlargement (Chronic) Left ventricular hypertrophy (Chronic) Atherosclerotic heart disease of [place] coronary artery without angina pectoris (Chronic) CABG x3- WARREN to LAD, SVG to diag branch of the LAD, and SVG to the 2nd lateral CX, intraoperative echo with maze procedure with Rt/Lt atrial and pulmonary vein isolatiion with Lt atrial appendage burn isolation with placement of Atri-Cure clip 10/09/13 Aortocoronary bypass status (Chronic ~10/09/13) CABG x3- WARREN to LAD, SVG to diag branch of the LAD, and SVG to the 2nd lateral CX, intraoperative echo with maze procedure with Rt/Lt atrial and pulmonary vein isolatiion with Lt atrial appendage burn isolation with placement of Atri-Cure clip 10/09/13 Long-term use of high-risk medication (Chronic) Persistent atrial fibrillation (Chronic) Left atrial thrombus (Chronic) History of complete heart block (Chronic) Presence of permanent cardiac pacemaker (Chronic ~07/30/15) Implant 07/30/15 Bilateral carotid bruits (Chronic) 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) Medical History: Medical History (Last Reviewed 10/01/17 @ 14:10 by Lily Fay) Paroxysmal atrial flutter (Chronic) I48.92 Paroxysmal atrial fibrillation (Chronic) I48.0 Type 2 diabetes mellitus (Chronic) E11.9 Hypertension (Chronic) I10 Hyperlipidemia (Chronic) E78.5 Left atrial enlargement (Chronic) I51.7 Left ventricular hypertrophy (Chronic) I51.7 Atherosclerotic heart disease of [place] coronary artery without angina pectoris (Chronic) I25.10 CABG x3- WARREN to LAD, SVG to diag branch of the LAD, and SVG to the 2nd lateral CX, intraoperative echo with maze procedure with Rt/Lt atrial and pulmonary vein isolatiion with Lt atrial appendage burn isolation with placement of Atri-Cure clip 10/09/13 Long-term use of high-risk medication (Chronic) Z79.899 Persistent atrial fibrillation (Chronic) I48.1 Left atrial thrombus (Chronic) History of complete heart block (Chronic) Z86.79 Presence of permanent cardiac pacemaker (Chronic) Onset Date: ~07/30/15 Z95.0 Implant 07/30/15 Bilateral carotid bruits (Chronic) R09.89 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) Z79.01 Asthma J45.909 CKD (chronic kidney disease) N18.9 Sleep apnea G47.30 Allergies atorvastatin calcium [From Lipitor] Allergy (Verified 11/27/17 11:30) Pain in joints Home Medications: Ambulatory Orders Medication Instructions Recorded Hydrocodone/Acetaminophen [Vicodin 1 tab PO Q4H PRN PRN 09/22/13 5-300 mg Tablet] Insulin Detemir [Levemir FlexPen] 7 - 10 units SC DAILY 09/22/13 Ipratropium/Albuterol Respimat 1 puff INHALATION DAILY PRN PRN 09/22/13 [Combivent Respimat Inhal [place]] Lisinopril [Zestril] 20 mg PO BID 09/22/13 Nitroglycerin [Nitrostat] 0.4 mg SUBLINGUAL Q5M PRN 09/22/13 traMADol [Ultram (G)] 50 mg PO Q8H PRN PRN 09/22/13 warfarin 2 mg tablet 2 mg PO QDAY 05/02/17 warfarin 5 mg tablet 5 mg PO QDAY 05/02/17 cetirizine 10 mg tablet 10 mg PO DAILY PRN PRN 09/30/17 glucosamine sulfate 500 mg tablet 500 mg PO BID tab 09/30/17 magnesium oxide 400 mg tablet 400 mg PO DAILY tab 09/30/17 metoprolol tartrate 50 mg tablet 50 mg PO BID 09/30/17 multivitamin tablet 1 tab PO QDAY 09/30/17 Baclofen [Baclofen] 10 mg PO BIDCM 11/27/17 Gabapentin [Neurontin] 300 mg PO QHS PRN 11/27/17 Metformin HCl [Glucophage] 1,000 mg PO BID 11/27/17 Omeprazole [Omeprazole] 40 mg PO DAILY 11/27/17 Spironolact/Hydrochlorothiazid 1 tab PO DAILY 11/27/17 [Aldactazide 25-25 Tablet] Ubidecarenone [Coenzyme Q-10] 200 mg PO DAILY 11/27/17 lipase/protease/amylase [Creon DR 1 capsule PO TIDCM 11/27/17 6,000 Unit Capsule] Surgical History: Surgical History (Last Updated 11/27/17 @ 14:54 by Paris Baca MD) Aortocoronary bypass status (Chronic) Onset Date: ~10/09/13 Z95.1 CABG x3- WARREN to LAD, SVG to diag branch of the LAD, and SVG to the 2nd lateral CX, intraoperative echo with maze procedure with Rt/Lt atrial and pulmonary vein isolatiion with Lt atrial appendage burn isolation with placement of Atri-Cure clip 10/09/13 History of left hip replacement Z96.642 History of cardiac radiofrequency ablation Onset Date: ~03/2014 Z98.890 History of cholecystectomy Z90.49 open History of right hip replacement Z96.641 History of tonsillectomy Z90.89 Smoking Status: Former smoker - Quit smoking in 1988. About 20-25 pack years of smoking - *Family History Paternal Family History: Family History (Last Reviewed 10/01/17 @ 14:10 by Lily Fay) Father CAD (coronary artery disease) Myocardial infarction, Onset Age: 60 History Items: No pertinent history Review of Systems Constitutional: Denies: Anorexia, Fever HEENT: Denies: Head Aches Cardiovascular: Denies: Chest Pain Respiratory: Denies: Shortness of breath at rest Gastrointestinal: Reports: Abdominal Pain - Epigastric after eating, Constipation. Denies: Nausea, Vomiting Hematologic/ Lymphatic: Reports: Easy Bleeding - Patient's on Coumadin Patient Problems: Active and Suspected Problems (Last Reviewed 10/01/17 @ 14:10 by Lily Fay) Near syncope (Acute) Acute symptomatic anemia (Acute) Abdominal pain, chronic, right upper quadrant (Acute) Multiple hypoechoic hepatic lesions (Acute) - Physical Exam General: Alert, Oriented x3, Cooperative, No apparent distress HEENT: Atraumatic, Normocephalic Cardiovascular: Regular rate - Paced Abdomen: Soft, Non Tender - Guarding or rebound, Non-Distended Extremities: No clubbing, No cyanosis, No edema Neurological: Cranial nerves II-XII grossly intact Psych/Mental Status: Normal Affect Vital Signs Temp Pulse Resp BP Pulse Ox 97.6 F L 70 16 171/77 H 100 11/27/17 11:27 11/27/17 14:37 11/27/17 14:37 11/27/17 14:37 11/27/17 14:37 Oxygen Delivery Method Room Air Assessment/Plan All Active Problems (Last Reviewed 10/01/17 @ 14:10 by Lily Fay) Near syncope (Acute) Acute symptomatic anemia (Acute) Abdominal pain, chronic, right upper quadrant (Acute) Multiple hypoechoic hepatic lesions (Acute) 72-year-old male with anemia, hypoechoic lesions in the liver. 1. Anemia: Patient's current INR is 3.1 will give the patient FFP would like the INR around 1.5 prior to doing an EGD for evaluation of bleeding. Patient had a recent colonoscopy in March 2017 which only showed one polyp. Patient's were agreeable with plan. We will plan for tomorrow around noon if patient's INR is around 1.5 prior to EGD. I have offered the patient EGD for evaluation. I have explained the risks/benefits of the procedure and described the procedure. I have discussed the risks with the patient, including but not limited to: infection, bleeding, perforation of the GI tract requiring emergency surgery, inability to complete the procedure, injury to any internal organs, complications of anesthesia, etc. - the patient understands and agrees to proceed. I have answered all the patient's questions to the patient's satisfaction and the patient has no further questions. 2. Hypoechoic liver lesions: CT abdomen pelvis ordered await results. Paris Baca M.D. Pager: [phone] [facility] [address] [place] [address], [address] [place] [id number] Office: [phone] Code Visit Inpatient E&M: 47193 Init Hosp L1
[2017-11-27 16:30] LABS: Bedside Glucose 126 mg/dL (70-110)
[2017-11-27 17:22] LABS: Hematocrit 20.8 % (40-54); Hemoglobin 6.6 g/dl (13.0-16.5)
[2017-11-27] MEDS: Baclofen 10 MG Tablet PO (17:57)
[2017-11-27] MEDS: Glucerna Shake 120 ML LIQUID PO (18:15)
[2017-11-27] MEDS: HYDROcodone Bitartrate/Apap 5/325 Tablet PO (20:26)
[2017-11-27] MEDS: 0.9% Normal Saline 1,000 ML 100 ML IV (20:54)
[2017-11-27] MEDS: Lisinopril 10 MG Tablet PO (22:03)
[2017-11-27] MEDS: Metoprolol Tartrate 50 MG Tablet PO (22:04)
[2017-11-27] MEDS: 0.9% NaCl Peripheral Flush Adult/Peds IV (22:04)
[2017-11-27] MEDS: Insulin Lispro 100 UNIT/ML INSULN.PEN SQ (22:12)
[2017-11-27] MEDS: Gabapentin 300 MG Capsule PO (22:12)
[2017-11-27 22:16] LABS: Bedside Glucose 159 mg/dL (70-110)
[2017-11-27 23:21] LABS: Hematocrit 21.5 % (40-54); Hemoglobin 6.8 g/dl (13.0-16.5)
[2017-11-28] VITALS (20 sets, daily range): BP systolic 103–162; BP diastolic 54–79; PULSE 67–75; RESP 14–18; TEMP 36.5–37.8; O2SAT 96–99; BMI 28.4
--- NOTE | 2017-11-28 00:02 | NURSING ---
patient's called in with the information for the patient's pacemaker. [employer] is the company name. phone number is
[2017-11-28] MEDS: DiphenhydrAMINE 25 MG Capsule PO (00:31)
[2017-11-28 01:45] LABS: International Normalized Ratio 1.6; Prothrombin Time (Protime)PT. 18.9 SECONDS (11.7-14.9)
[2017-11-28 04:38] LABS: Absolute Lymphocyte Count 1.12 X10^3/ul (0.83-4.51); Absolute Neutrophil Count 5.7 X10^3/uL (2.0-7.7); Basophil# 0.02 X10^3/uL; Basophil% 0.3 % (0-1); Eosinophil# 0.33 X10^3/uL; Eosinophils% 4.2 % (0-5); Hematocrit 23.7 % (40-54); Hemoglobin 7.8 g/dl (13.0-16.5); Lymphocyte # 1.12 X10^3/ul (4.0); Lymphocyte % 14.2 % (19-41); Mean Corp Hgb Conc 32.9 g/gl (32-36); Mean Corpuscular Volume 84.9 fL (80-94); Mean Platelet Vol. 9.9 fl (6.2-12.0); Monocyte# 0.68 X10^3/uL; Monocyte% 8.7 % (0-10); Neutrophil % 72.5 % (47-70); Platelet Count 271 K/mm3 (150-450); RBC Distribution Width CV 13.9 % (11.6-14.6); RBC Distribution Width SD 41.6 fl (35.1-43.9); Red Blood Count 2.79 M/mm3 (4.6-6.2); White Blood Count 7.9 K/mm3 (4.4-11.0)
[2017-11-28 04:40] LABS: POSITIVE COUNT NO; POSITIVE DIFFERENTIAL NO; POSITIVE MORPHOLOGY NO
[2017-11-28 04:45] LABS: International Normalized Ratio 1.4; Prothrombin Time (Protime)PT. 16.8 SECONDS (11.7-14.9)
[2017-11-28 04:46] LABS: Partial Thromboplast Time 38.6 Seconds (24.1-36.2)
[2017-11-28 05:14] LABS: Anion Gap 9 (5-15); BUN 29 mg/dL (7-18); BUN/Creat Ratio 22.1 RATIO (10-20); Calcium,Total 9.7 mg/dL (8.5-10.1); Chloride 102 mmol/L (98-107); Creatinine, Serum 1.31 mg/dL (0.70-1.30); EST Glomerular Filtration Rate 57 mL/min (>60); Est Glom Filt Rate - Afr Amer 69 mL/min (>60); Estimated Creatinine Clearance 55.95 ml/min; Glucose 151 mg/dL (74-106); Potassium 3.8 mmol/L (3.5-5.1); Sodium Level 139 mmol/L (136-145)
[2017-11-28 05:36] LABS: Hemoglobin A1c 7.1 % (4.2-6.3)
[2017-11-28 07:00] LABS: Bedside Glucose 127 mg/dL (70-110)
--- NOTE | 2017-11-28 07:30 | NURSING ---
Called report to MCKENZIE KILPATRICK
--- NOTE | 2017-11-28 07:31 | PN_ITS ---
Subjective: Seen and examined. No new complains. Had EGD that showed distal circumferential mass. Denies nausea or vomiting. His pain is controlled. Vitals/I&O's: Vital Signs Temp Pulse Resp BP Pulse Ox 98.5 F 75 16 145/73 H 98 11/28/17 04:18 11/28/17 06:57 11/28/17 04:18 11/28/17 04:18 11/28/17 04:18 Oxygen Delivery Method Room Air Weight: 95 kg Body Mass Index (BMI) 28.4 Intake and Output for Last 24 Hours 11/26/17 11/27/17 11/28/17 23:59 23:59 23:59 Intake Total 1937 / 1937 1391 / 1391 Output Total 500 / 500 550 / 550 Balance 1437 / 1437 841 / 841 General: Alert, Oriented x3, Cooperative, No apparent distress HEENT: Atraumatic, PERRLA, EOMI, Normocephalic Oral: Moist Mucosa Neck: Supple Lungs: Clear to auscultation, Normal air movement Cardiovascular: Regular rate, Regular Rhythm, Normal S1, Normal S2, No murmurs Abdomen: Bowel Sounds Present, Soft, Non-Distended, No Hepato-splenomegaly, Tender - mild RUQ tenderness, no guarding, no RBT Extremities: No edema Skin: No rashes, No breakdown Musculoskeletal: No Tenderness to Palpation of Joints or Extremities Lymphatic: No Cervical, Supraclavicular, or Inguinal Adenopathy Neurological: Cranial nerves II-XII grossly intact, Neuro grossly intact Psych/Mental Status: Normal Affect, Appropriate Laboratory Results 11/27/17 16:27: POC Glucose 126 H 11/27/17 16:40: Tumor Marker AFP Pending 11/27/17 16:40: Hgb 6.6 L, Hct 20.8 L 11/27/17 16:40: Troponin I 0.016 11/27/17 19:17: Troponin I 0.021 11/27/17 22:07: POC Glucose 159 H 11/27/17 23:09: Hgb 6.8 L, Hct 21.5 L 11/28/17 01:19: PT 18.9 H, INR 1.6 11/28/17 04:30: WBC 7.9, RBC 2.79 L, Hgb 7.8 L, Hct 23.7 L, MCV 84.9, MCH 28.0, MCHC 32.9, RDW 13.9, RDW Differential 41.6, Plt Count 271, MPV 9.9, Immature Gran % (Auto) 0.100, Neut % (Auto) 72.5 H, Lymph % (Auto) 14.2 L, [place] % (Auto) 8.7, Eos % (Auto) 4.2, Baso % (Auto) 0.3, Absolute Neuts (auto) 5.7, Absolute Lymphs (auto) 1.12, Total Counted Not Reportable 11/28/17 04:30: PT 16.8 H, INR 1.4, APTT 38.6 H 11/28/17 04:30: Sodium 139, Potassium 3.8, Chloride 102, Carbon Dioxide 28.0, Anion Gap 9, BUN 29 H, Creatinine 1.31 H, Estim Creat Clear Calc 55.95, Est GFR (MDRD) Af Amer 69, Est GFR (MDRD) Non-Af 57 L, BUN/Creatinine Ratio 22.1 H, Glucose 151 H, Calcium 9.7 11/28/17 04:30: Hemoglobin A1c 7.1 H 11/28/17 06:55: POC Glucose 127 H Current Medications Hydrocodone Bitart/Acetaminophen ([place] 5mg-325mg) 1 tablet PO Q4H PRN PRN Reason: PAIN Last Admin: 11/27/17 20:26 Dose: 1 tablet Albuterol/Ipratropium (Duoneb) 3 ml INHALATION Q6H PRN PRN Reason: Wheezing Baclofen (Lioresal) 10 mg PO BIDCM ADAM Last Admin: 11/27/17 17:57 Dose: 10 mg Dextrose (D50w Syringe) 0 gm IV X1 PRN; Protocol PRN Reason: Hypoglycemia Diphenhydramine HCl (Benadryl) 25 mg PO Q6H PRN PRN PRN Reason: ITCHING Last Admin: 11/28/17 00:31 Dose: 25 mg Gabapentin (Neurontin) 300 mg PO QHS PRN PRN Reason: NEUROPATHY Last Admin: 11/27/17 22:12 Dose: 300 mg Glucagon () 1 mg IM .X1 PRN PRN Reason: Hypoglycemia Sodium Chloride () 1,000 mls @ 100 mls/hr IV .Q10H ADAM Last Admin: 11/28/17 02:40 Dose: Not Given Pantoprazole Sodium 40 mg/ (Sodium Chloride) 110 mls @ 330 mls/hr IV Q12 [facility] Last Admin: 11/27/17 22:03 Dose: 330 mls/hr Insulin Glargine (Lantus (Bkc)) 10 units SC DAILY [facility] Insulin Human Lispro (Humalog Kwikpen (Bkc)) 0 unit SQ ACHS ADAM PRN Reason: Protocol Last Admin: 11/28/17 06:58 Dose: Not Given Lisinopril (Zestril) 10 mg PO BID [facility] Last Admin: 11/27/17 22:03 Dose: 10 mg Loratadine (Claritin) 10 mg PO DAILY PRN PRN PRN Reason: ALLERGIES Magnesium Hydroxide (Milk Of Magnesia) 30 ml PO DAILY PRN PRN Reason: Constipation Magnesium Oxide (Mag-Ox 400) [facility] Metoprolol Tartrate (Lopressor (Beta Thony)) 50 mg PO BID [facility] Last Admin: 11/27/17 22:04 Dose: 50 mg Nitroglycerin (Nitrostat) 0.4 mg SUBLINGUAL Q5M PRN PRN Reason: Chest Pain Nutritional Formula (Lactose Free) (Glucerna Shake) 120 ml PO 4X/DAY [facility] Last Admin: 11/27/17 22:03 Dose: Not Given Pancrelipase (Creon Dr 6,000 Unit Capsule) 1 capsule PO TIDCM [facility] Last Admin: 11/27/17 17:57 Dose: 1 capsule Sodium Chloride () 5 - 30 ml IV UD PRN PRN Reason: SALINE FLUSH Last Admin: 11/27/17 22:04 Dose: 10 ml Medical Necessity - Tobacco Use Smoking Status: Former smoker Assessment/Plan All Active Problems (Last Reviewed 10/01/17 @ 14:10 by Lily Fay) Near syncope (Acute) Acute symptomatic anemia (Acute) Abdominal pain, chronic, right upper quadrant (Acute) Multiple hypoechoic hepatic lesions (Acute) 1. Acute symptomatic anemia, s/p 2 pRBC transfusions, repeat Hb is 7.8 2. Acute GI bleed secondary to distal esopahgeal mass, on H2 blockers 3. 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 Chronic right upper quadrant abdominal pain secondary to multiple liver lesions, likely metastasis 5. CAD s/p CABG, chronic A. fib/flutter on Coumadin, history of complete heart block status post permanent cardiac pacemaker and cardioversion, all stable, off coumadin/Hypertension/Hyperlipidemia 6. COPD, stable, not in acute exacerbation 7. Type 2 DM, BS are fairly controlled, on Insulin with ISS 8. ALPHONSO on CKD stage III, POA, improving with hydration 9. DVT Ppx- SCDs Code Visit Inpatient E&M: 29251 Subs Hosp L2
--- NOTE | 2017-11-28 08:54 | PCM.OPRPT ---
Report of Operation Date of Procedure: 11/28/17 Pre-Operative Diagnosis: Anemia, epigastric pain Post-Operative Diagnosis: 5-6 cm circumferential distal esophageal mass Surgery/Procedure Performed:: EGD with biopsy Type of Anesthesia:: MAC Anesthesiologist: Agapito Zeng Specimen's removed: Distal esophageal mass biopsies Estimated Blood Loss (mL): Minimal Description of Procedure: Procedure: EGD After obtaining informed consent, the endoscope was passed under direct visualization. Throughout the procedure, patient's blood pressure, pulse, oxygen saturations were monitored continuously by anesthesia. The endoscope was introduced through the mouth, on insertion there is noted to be circumferential distal esophageal necrotic mass about 5-6 cm in length and advanced to the 2nd part of the duodenum. The upper GI endoscopy was accomplished without difficulty. Patient tolerated procedure well. Findings: Circumferential necrotic distal esophageal mass from about 35 cm to 40 cm at the GE junction. Multiple biopsies were taken of this area with cold forceps for histology. Estimated blood loss was minimal The stomach appeared normal, the mass appears to approach the GE junction. The duodenum was normal. Impression: 1. Circumferential distal esophageal mass-approaches GEJ. Multiple biopsies taken 2. The stomach appears normal 3. 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 Continue PPI as well as holding anticoagulation as this was likely the bleeding source no active bleeding was seen during the scope. - Complications None
[2017-11-28] MEDS: 0.9% Normal Saline 1,000 ML 100 ML IV (09:59)
[2017-11-28] MEDS: Magnesium Oxide 400 MG Tablet PO (09:59)
[2017-11-28] MEDS: Lisinopril 10 MG Tablet PO (09:59)
[2017-11-28] MEDS: Metoprolol Tartrate 50 MG Tablet PO (09:59)
--- NOTE | 2017-11-28 11:04 | PCM.DC ---
- Discharge Diagnoses Current Active Problems: Current Active and Chronic Problems (Last Reviewed 10/01/17 @ 14:10 by Lily Fay) Near syncope (Acute) Acute symptomatic anemia (Acute) Abdominal pain, chronic, right upper quadrant (Acute) Multiple hypoechoic hepatic lesions (Acute) Reason(s) for Visit for Discharge Instructions: Weakness, dizziness, abdominal pain, rectal bleeding Your food should be the consistency of: Mechanical soft (ground), Puree Allergies/Adverse Reactions: Allergies atorvastatin calcium [From Lipitor] Allergy (Verified 11/27/17 11:30) Pain in joints Medications to take at Discharge Hydrocodone/Acetaminophen [Vicodin 5-300 mg Tablet] 1 tab PO Q4H PRN PRN 09/22/13 Insulin Detemir [Levemir FlexPen] 7 - 10 units SC DAILY 09/22/13 Ipratropium/Albuterol Respimat [Combivent Respimat Inhal [place]] 1 puff INHALATION DAILY PRN PRN 09/22/13 Lisinopril [Zestril] 20 mg PO BID 09/22/13 Nitroglycerin [Nitrostat] 0.4 mg SUBLINGUAL Q5M PRN 09/22/13 traMADol [Ultram (G)] 50 mg PO Q8H PRN PRN 09/22/13 warfarin 2 mg tablet 2 mg PO QDAY 05/02/17 warfarin 5 mg tablet 5 mg PO QDAY 05/02/17 cetirizine 10 mg tablet 10 mg PO DAILY PRN PRN 09/30/17 glucosamine sulfate 500 mg tablet 500 mg PO BID tab 09/30/17 magnesium oxide 400 mg tablet 400 mg PO DAILY tab 09/30/17 metoprolol tartrate 50 mg tablet 50 mg PO BID 09/30/17 multivitamin tablet 1 tab PO QDAY 09/30/17 Baclofen [Baclofen] 10 mg PO BIDCM 11/27/17 Gabapentin [Neurontin] 300 mg PO QHS PRN 11/27/17 Metformin HCl [Glucophage] 1,000 mg PO BID 11/27/17 Omeprazole [Omeprazole] 40 mg PO DAILY 11/27/17 Ubidecarenone [Coenzyme Q-10] 200 mg PO DAILY 11/27/17 lipase/protease/amylase [Creon DR 6,000 Unit Capsule] 1 capsule PO TIDCM 11/27/17 Primary Care Physician: Scotty Nicolas MD [Primary Care Provider] - Test Results: Test results from this visit will be discussed in further detail at your follow-up appointment, if applicable.
[2017-11-28 11:24] LABS: Hematocrit 24.9 % (40-54)
[2017-11-28 11:25] LABS: Bedside Glucose 147 mg/dL (70-110)
--- NOTE | 2017-11-28 12:00 | ESO_PTH ---
PATIENT: MOSES KATE LOC: U U#:[id number] AGE/SX: 72/M ROOM: [facility] RE11/27/[address]: Dr. Chitra Schaefer MD : 1945 BED: 1 DIS: 11/28/2017 SPEC #: [id number] RECD: 11/28/17 12:39 STATUS: CINDY REEliceo #: [id number] FAZAL: 11/28/17 12:[address]: Paris Baca DEPT: SURGICAL PATHOLOGY RECD BY: Juaquin Barros ENTERED: 11/28/17 13:35 SP TYPE: ESOPH BX CARLOS DR: MD Dr. Scotty Mckeon MD Dr. Prakash Chand, MD Tissues: Esophagus, NOS Procedures: Special Stain Group I Surgery Specimen Level IV GMS Stain (control) HEADER OPERATION: [place] [place] DIAGNOSIS: Anemia TISSUE SUBMITTED: Distal esophageal mass biopsy MICROSCOPIC DIAGNOSIS Distal esophageal mass, biopsy: Fragments of squamous mucosa with focal ulceration and acute and chronic inflammation and extensive bacterial colonization. Special stain for fungi is negative for organisms; matched control is appropriate. ED:raad 11/29/17 COMMENT The specimen shows numerous fragments of bacterial colonization. Some of these fragments are suggestive of actinomyces organisms. If there is high suspicion of malignancy, rebiopsy is suggested if clinically indicated. This case is discussed with Dr. Baca on 11/29/17. Case has been reviewed in consultation with Dr. Villanueva who concurs with the above diagnosis. IDC:AM MICROSCOPIC DESCRIPTION Slides are reviewed. GROSS DESCRIPTION Received in fixative is one container labeled with the patient's name and designated distal esophageal mass biopsy. The specimen consists of multiple irregular fragments of light emery soft tissue that in aggregate measure 1 x 0.3 x 0.1 cm. The specimen is totally submitted in one cassette. / AM:raad 11/28/17 TC:2 CPT: 57253, 52132
[2017-11-28] MEDS: Glucerna Shake 120 ML LIQUID PO (12:59)
--- NOTE | 2017-11-28 15:18 | PCM.DC.SUM ---
Discharge Date and Diagnosis Date of Admission: 11/27/17 Date of Discharge: 11/28/17 - Primary Discharge Diagnosis Active and Suspected Problems (Last Reviewed 10/01/17 @ 14:10 by Lily Fay) Near syncope (Acute) Acute symptomatic anemia (Acute) Abdominal pain, chronic, right upper quadrant (Acute) Multiple hypoechoic hepatic lesions (Acute) Distal esophageal mass, likely malignant - Secondary Discharge Diagnosis Chronic Problems (Last Reviewed 10/01/17 @ 14:10 by Lily Fay) Paroxysmal atrial flutter (Chronic) Paroxysmal atrial fibrillation (Chronic) Type 2 diabetes mellitus (Chronic) Hypertension (Chronic) Hyperlipidemia (Chronic) Left atrial enlargement (Chronic) Left ventricular hypertrophy (Chronic) Atherosclerotic heart disease of [place] coronary artery without angina pectoris (Chronic) CABG x3- WARREN to LAD, SVG to diag branch of the LAD, and SVG to the 2nd lateral CX, intraoperative echo with maze procedure with Rt/Lt atrial and pulmonary vein isolatiion with Lt atrial appendage burn isolation with placement of Atri-Cure clip 10/09/13 Aortocoronary bypass status (Chronic ~10/09/13) CABG x3- WARREN to LAD, SVG to diag branch of the LAD, and SVG to the 2nd lateral CX, intraoperative echo with maze procedure with Rt/Lt atrial and pulmonary vein isolatiion with Lt atrial appendage burn isolation with placement of Atri-Cure clip 10/09/13 Long-term use of high-risk medication (Chronic) Persistent atrial fibrillation (Chronic) Left atrial thrombus (Chronic) History of complete heart block (Chronic) Presence of permanent cardiac pacemaker (Chronic ~07/30/15) Implant 07/30/15 Bilateral carotid bruits (Chronic) superintendent terminal (current) use of anticoagulants (Chronic) Hospital Course and Treatment Imaging Results: Clinical Impression(s) from Imaging Studies Chest X-Ray 11/27/17 11:50 IMPRESSION: No acute abnormalities seen. Electronically Signed: Jayjay Stephens MD at 14:06 EDT Tel [phone], Service support , Abdomen/Pelvis CT 11/27/17 14:03 IMPRESSION: Suspicion of multiple low-density liver masses. Metastatic disease is a possibility. Consider dynamic contrast CT of the liver. Marked fecal retention throughout the colon. Electronically Signed: Connor Nicole MD at 17:11 EDT , Service support , General surgery - Dr. Baca Procedures: EGD Summary of Care Provided: The patient is a 72 year old M with multiple comorbidities, significant for chronic atrial fibrillation/atrial flutter on chronic Coumadin therapy who comes in with complaints of dizziness, lightheadedness, and generalized weakness. Patient had also complained of right upper quadrant pain and had an ultrasound done by a primary and was reported as multiple hypoechoic lesions. He had prior to admission elevated blood sugars of more than 500 and this improved with a little bit more insulin treatment than his usual. He had complained of dyspepsia ongoing for 2 months as well as a 55 pound weight loss. His admitting hemoglobin was 7.1 which was a drop from 10.2 early on in the month and he admitted to having dark stools. Admitting INR was also 3.1. He received 2 units of packed RBCs. Repeat Hb was 7.8. He also received FFP's. Patient underwent EGD which showed a distal esophageal mass. Per general surgery recommendation, patient was transferred to [facility] for further workup and possible stenting of an esophageal mass Discharge Diet: Low fat/ Low Cholesterol, 2000 mg Sodium Diet Discharge Activity: Return to Normal Activity Home Medications: Medications to take at Discharge Hydrocodone/Acetaminophen [Vicodin 5-300 mg Tablet] 1 tab PO Q4H PRN PRN 09/22/13 Insulin Detemir [Levemir FlexPen] 7 - 10 units SC DAILY 09/22/13 Ipratropium/Albuterol Respimat [Combivent Respimat Inhal [place]] 1 puff INHALATION DAILY PRN PRN 09/22/13 Lisinopril [Zestril] 20 mg PO BID 09/22/13 Nitroglycerin [Nitrostat] 0.4 mg SUBLINGUAL Q5M PRN 09/22/13 traMADol [Ultram (G)] 50 mg PO Q8H PRN PRN 09/22/13 warfarin 2 mg tablet 2 mg PO QDAY 05/02/17 warfarin 5 mg tablet 5 mg PO QDAY 05/02/17 cetirizine 10 mg tablet 10 mg PO DAILY PRN PRN 09/30/17 glucosamine sulfate 500 mg tablet 500 mg PO BID tab 09/30/17 magnesium oxide 400 mg tablet 400 mg PO DAILY tab 09/30/17 metoprolol tartrate 50 mg tablet 50 mg PO BID 09/30/17 multivitamin tablet 1 tab PO QDAY 09/30/17 Baclofen [Baclofen] 10 mg PO BIDCM 11/27/17 Gabapentin [Neurontin] 300 mg PO QHS PRN 11/27/17 Metformin HCl [Glucophage] 1,000 mg PO BID 11/27/17 Omeprazole [Omeprazole] 40 mg PO DAILY 11/27/17 Ubidecarenone [Coenzyme Q-10] 200 mg PO DAILY 11/27/17 lipase/protease/amylase [Creon DR 6,000 Unit Capsule] 1 capsule PO TIDCM 11/27/17 Primary Care Physician: Scotty Nicolas MD [Primary Care Provider] - Disposition: Acute care Hospital Minutes spent on discharge:: 75 Patient Condition:: Stable Medical Necessity - Tobacco Use Smoking Status: Former smoker Meaningful Use Info Meaningful Use Diagnoses (Choose all that apply): None applicable Code Visit Inpatient E&M: 63524 Disch Hosp
--- NOTE | 2017-11-28 15:48 | NURSING ---
Called report to Robert KILPATRICK at [facility]
[2017-11-29 10:37] LABS: AFP, Tumor Marker 1.2 ng/mL (0.0-8.3); Carcinoembryonic Antigen 1.4 ng/mL (0.0-4.7)
== END 2017-11-28 16:37 | disposition short-term general hospital (02) | DRG 376 ==
LOC: ED 13:33 → PCU 13:43
PROVIDERS: Surgery; Admitting Provider Internal Medicine; Emergency Provider Emergency Medicine; Family Provider Family Medicine; PCP Family Medicine; Visit Provider Internal Medicine
PROC: 0DJ08ZZ Inspection of Upper Intestinal Tract, Via Natural or Artificial Opening Endoscopic (ICD-10-PCS; CPT 43235; principal; 2017-11-28 11:55)
DX: C15.5 Malignant neoplasm of lower third of esophagus (principal); D64.9 Anemia, unspecified; R55 Syncope and collapse; R10.11 Right upper quadrant pain; G89.29 Other chronic pain; K22.9 Disease of esophagus, unspecified; K76.9 Liver disease, unspecified; I10 Essential (primary) hypertension; E78.5 Hyperlipidemia, unspecified; Z95.1 Presence of aortocoronary bypass graft; Z79.01 Long term (current) use of anticoagulants; Z95.0 Presence of cardiac pacemaker; I48.2 Chronic atrial fibrillation; E11.9 Type 2 diabetes mellitus without complications; Z79.4 Long term (current) use of insulin; I25.10 Atherosclerotic heart disease of native coronary artery without angina pectoris; Z87.891 Personal history of nicotine dependence
CPT/HCPCS: 36415; 71045; 74177; 80048; 80053; 81001; 82105; 82274; 82378; 82962; 83036; 83690; 84484; 85014; 85018; 85025; 85610; 85730; 86850; 86900; 86920; 86922; 88305; 88312; 93005; 97802; 99283; J7030; J7040; P9016; P9017; Q9967; A4216; J3490

== ENCOUNTER → 2018-01-18 15:56 | Outpatient (CLI) | payer MEDICARE, OTHER, SELFPAY ==
[2018-01-18 16:36] LABS: ALB/GLOB Ratio 0.7 RATIO (0.9-2.4); AST(SGOT) 25 U/L (15-37); Alanine Aminotransfer ALT/SGPT 24 U/L (16-61); Albumin, Serum 3.1 g/dL (3.2-5.0); Alkaline Phosphatase 181 U/L (45-117); Anion Gap 7 (5-15); BUN 14 mg/dL (7-18); BUN/Creat Ratio 13.3 RATIO (10-20); Calcium,Total 9.9 mg/dL (8.5-10.1); Chloride 102 mmol/L (98-107); Creatinine, Serum 1.05 mg/dL (0.70-1.30); EST Glomerular Filtration Rate 74 mL/min (>60); Est Glom Filt Rate - Afr Amer 89 mL/min (>60); Globulin 4.2 g/dL (2.2-4.2); Glucose 153 mg/dL (74-106); Magnesium 1.6 mg/dL (1.6-2.6); Potassium 4.2 mmol/L (3.5-5.1); Protein, Total 7.3 g/dL (6.4-8.2); Sodium Level 136 mmol/L (136-145)
[2018-01-18 16:45] LABS: Absolute Lymphocyte Count 0.47 X10^3/ul (0.83-4.51); Absolute Neutrophil Count 5.6 X10^3/uL (2.0-7.7); Basophil# 0.03 X10^3/uL; Basophil% 0.4 % (0-1); Eosinophil# 0.64 X10^3/uL; Hematocrit 29.8 % (40-54); Hemoglobin 9.3 g/dl (13.0-16.5); Lymphocyte # 0.47 X10^3/ul (4.0); Lymphocyte % 6.6 % (19-41); Mean Corp Hgb Conc 31.2 g/gl (32-36); Mean Corpuscular Hgb 26.7 pg (27.0-32.0); Mean Corpuscular Volume 85.6 fL (80-94); Mean Platelet Vol. 10.3 fl (6.2-12.0); Monocyte# 0.43 X10^3/uL; Neutrophil # 5.57 X10^3/uL (2.7-7.7); Neutrophil % 77.9 % (47-70); Platelet Count 165 K/mm3 (150-450); RBC Distribution Width CV 19.1 % (11.6-14.6); RBC Distribution Width SD 59.3 fl (35.1-43.9); Red Blood Count 3.48 M/mm3 (4.6-6.2); White Blood Count 7.2 K/mm3 (4.4-11.0)
[2018-01-18 16:49] LABS: Differential Indicated SCAN CRITERIA MET; POSITIVE COUNT NO; POSITIVE DIFFERENTIAL YES; POSITIVE MORPHOLOGY NO
[2018-01-18 17:05] LABS: Differential Comment SCANNED
== END ==
PROVIDERS: Family Provider Family Medicine; PCP Family Medicine; Visit Provider Family Medicine
DX: E11.22 Type 2 diabetes mellitus with diabetic chronic kidney disease (principal); N18.9 Chronic kidney disease, unspecified; C15.9 Malignant neoplasm of esophagus, unspecified
CPT/HCPCS: 80053; 83735; 85025